=== PATIENT | male | born 1935 | race Caucasian/White ===

== ENCOUNTER 2017-06-23 15:20 | Emergency (ER) | payer OTHER, MEDICAID ==
[~2017-06-23] VITALS: Ht 154.9 cm; Wt 51.3 kg
[2017-06-23 15:20] VITALS: BP_SYST 124
== END 2017-06-23 16:45 | disposition left against medical advice (07) ==
LOC: SED 15:20
DX: R68.89 Other general symptoms and signs (principal); Z53.21 Procedure and treatment not carried out due to patient leaving prior to being seen by health care provider